=== PATIENT | male | born 1935 | race Caucasian/White ===

== ENCOUNTER → 2019-08-01 10:39 | Outpatient (CLI) | payer MEDICARE, OTHER, SELFPAY ==
--- NOTE | 2019-08-01 10:43 | US_ITS ---
PROCEDURE: US SOFT TISSUE HEAD AND NECK CLINICAL INDICATION: LT PAROTID NEOPLASM COMPARISON: SINUS CT SINUS (MAX-FACIAL W/O CONT) from 12/15/2014 FINDINGS: In the left mandibular area in the preauricular region there is a hypoechoic 1 cm nodule. The margins are somewhat irregular. There is some enhanced through transmission of sound. This does not represent a simple cyst and corresponds to the palpable abnormality. There is a 2nd nodule just anterior to this which is oval and more isoechoic and well-circumscribed measuring 1 x 0.5 x 0.9 cm IMPRESSION: There are 2 nodules present in the region of the palpable abnormality in the preauricular region on the left. One of these nodules is hypoechoic and has an irregular appearance suspicious for neoplasm. The 2nd nodule is more anterior may represent an enlarged lymph node. Recommend CT of the face/neck with contrast for further evaluation. Dictated by: Andrew Hoffman MD 08/01/2019 11:26 Electronically signed by Andrew Hoffman MD in [facility] 08/01/2019 11:26
== END ==
PROVIDERS: PCP Family Medicine; Visit Provider Family Medicine
DX: D49.2 Neoplasm of unspecified behavior of bone, soft tissue, and skin (principal)
CPT/HCPCS: 76536

== ENCOUNTER → 2019-08-10 08:28 | Outpatient (CLI) | payer MEDICARE, OTHER, SELFPAY ==
[2019-08-10 09:15] LABS: Blood Urea Nitrogen 18 mg/dL (7-18); Creatinine,Serum 0.85 mg/dL (0.70-1.30); Estimated Glomerular Filt Rate 86 ml/min (>60); GFR (African American) 104 ML/MIN (>60)
--- NOTE | 2019-08-10 09:29 | CT_ITS ---
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 All CT scans at the facility use one or more dose reduction, viz: automated exposure control, ma/kV adjustment per patient size (including targeted exams where dose is matched to indication, i.e. head), or iterative reconstruction technique. FINDINGS: No midline shift, mass effect, intracranial hemorrhage, hydrocephalus, or extra-axial fluid collection is evident. No enhancing lesions are evident. There is generalized atrophy with hypoattenuation of the periventricular white matter consistent with microangiopathic changes. The calvarium has an unremarkable appearance. There are bilateral mastoid effusions with bilateral mastoid opacification . there is moderate mucosal thickening of the ethmoid, sphenoid, and frontal sinuses. IMPRESSION: 1. No acute intracranial findings. 2. Bilateral mastoid and paranasal sinus disease Dictated by: Andrew Hoffman MD 08/11/2019 18:16 Electronically signed by Andrew Hoffman MD in [facility] 08/11/2019 18:16
--- NOTE | 2019-08-10 09:29 | CT_ITS ---
PROCEDURE: CT SOFT TISSUE NECK W CON CLINICAL HISTORY: NEOPLASM OF SKIN OF JAWLINE Palpable nodule on the left. History of parotid cancer TECHNIQUE: Oral Contrast: None IV Contrast: 75 mL Optiray 350 Axial images obtained with sagittal and coronal reformats. All CT scans at the facility use one or more dose reduction, viz: automated exposure control, ma/kV adjustment per patient size (including targeted exams where dose is matched to indication, i.e. head), or iterative reconstruction technique. FINDINGS: There is moderate mucosal thickening of the ethmoid sinuses and maxillary sinuses and the sphenoid sinuses. The sphenoid sinus is small. A BB is placed in the left preauricular region. Small nodular densities are present in the preauricular region on the left measuring up to 8 mm and may be due to small lymph nodes. This is in the left parotid bed. There has been prior left partial parotidectomy. Artifact is present the patient's dental work. There is scattered small lymph nodes in the neck with no dominant adenopathy apparent. There is bilateral mastoid opacification IMPRESSION: Status post left partial parotidectomy. There are few small nodular densities in the posterior aspect of the parotid bed in the preauricular region. These may be due to small lymph nodes measuring up to 8 mm. The differential diagnosis would include recurrence parotid nodules such as Warthin's tumor or pleomorphic adenomas. Paranasal sinus disease Bilateral mastoid opacification Dictated by: Andrew Hoffman MD 08/12/2019 05:18 Electronically signed by Andrew Hoffman MD in [facility] 08/12/2019 05:18
== END ==
PROVIDERS: PCP Family Medicine; Visit Provider Family Medicine
DX: D49.2 Neoplasm of unspecified behavior of bone, soft tissue, and skin (principal)
CPT/HCPCS: 36415; 70470; 70491; 82565; 84520; Q9967

== ENCOUNTER → 2019-10-17 16:13 | Outpatient (CLI) | payer MEDICARE, OTHER, SELFPAY ==
--- NOTE | 2019-10-17 16:27 | ECG_ITS ---
APPROVED REPORT Exam: Resting ECG HR:64 bpm ECG Measurements Heart Rate 64 AXES HI 188 P 41 QRSd 92 QRS 25 QT 408 T 100 QTc 420 <Conclusion> Normal sinus rhythm Motion Artifact No Acute Changes Seen Electronically signed by : Josh Bates, 10/17/2019 16:35:01
== END ==
PROVIDERS: PCP Family Medicine; Visit Provider Family Medicine
DX: Z01.810 Encounter for preprocedural cardiovascular examination (principal)
CPT/HCPCS: 93005

== ENCOUNTER → 2020-09-27 09:51 | Outpatient (CLI) | payer MEDICARE, OTHER, SELFPAY ==
--- NOTE | 2020-09-27 10:06 | US_ITS ---
PROCEDURE: US ABDOMEN COMPLETE CLINICAL INDICATION: RUQ PAIN COMPARISON: No exams were available for comparison FINDINGS: PANCREAS: Unremarkable. No obvious mass or abnormal fluid collection. No ductal dilatation LIVER: No focal liver lesions demonstrated. Homogeneous echogenicity. No intrahepatic biliary ductal dilatation evident. There is appropriate direction of blood flow within a non dilated portal vein RIGHT KIDNEY: Unremarkable. Normal size and echogenicity. No hydronephrosis LEFT KIDNEY: Unremarkable. Normal size and echogenicity. No hydronephrosis GALLBLADDER: There are multiple gallstones noted. No gallbladder wall thickening or pericholecystic fluid evident. Common bile duct is 5 mm. AORTA: No evidence of aneurysmal dilatation. SPLEEN: Unremarkable. Normal size and echogenicity ASCITES: None demonstrated. IMPRESSION: Cholelithiasis Dictated by: Andrew Hoffman MD 09/27/2020 16:59 Andrew Hoffman MD in [facility] 09/27/2020 16:59
== END ==
PROVIDERS: PCP Family Medicine; Visit Provider Family Medicine
DX: R10.11 Right upper quadrant pain (principal)
CPT/HCPCS: 76700

== ENCOUNTER → 2020-10-15 15:10 | Outpatient (CLI) | payer MEDICARE, OTHER, SELFPAY ==
[2020-10-15 16:14] LABS: Basophils # 0.1 K/mm3 (0-0.2); Basophils % 1.1 % (0.1-2.0); Eosinophils # 0.2 K/mm3 (0.0-0.4); Eosinophils % 2.4 % (0.1-12.0); Hematocrit 48.8 % (42.0-52.0); Hemoglobin 15.5 g/dL (14.1-18.0); Lymphocytes # 2.2 K/mm3 (0.7-4.5); Lymphocytes % 28.1 % (10-50); Mean Corpuscular HGB Conc 31.7 g/dL (31.8-35.4); Mean Corpuscular Hemoglobin 28.8 pg (27.0-31.2); Mean Corpuscular Volume 90.7 fl (80-94); Mean Platelet Volume 7.9 fl (7.4-10.4); Monocytes # 0.5 K/mm3 (0.1-1.0); Monocytes % 6.1 % (1.7-9.3); Neutrophils # 4.8 K/mm3 (1.8-7.8); Neutrophils % 62.4 % (37.0-80.0); Platelet Count 217 K/mm3 (142-424); Red Blood Count 5.37 M/mm3 (4.60-6.20); Red Cell Distribution Width 13.2 % (11.5-17.5); White Blood Count 7.7 K/mm3 (4.8-10.8)
[2020-10-15 16:37] LABS: Activated Partial Thrombo Time 25.4 seconds (23.6-34.0); INR 1.07 (0.9-1.1); Prothrombin Time 11.8 seconds (9.4-11.8)
[2020-10-15 17:25] LABS: Alanine Aminotransferase 13 U/L (12-78); Albumin Level 4.5 g/dl (3.5-5.0); Albumin/Globulin Ratio 1.6 (1.1-1.8); Alkaline Phosphatase 85 U/L (38-126); Amylase 117 U/L (30-110); Anion Gap 12.6 mEq/L (5-15); Aspartate Amino Transferase 21 U/L (17-59); Bilirubin,Total 0.6 mg/dl (0.2-1.3); Blood Urea Nitrogen 13 mg/dl (9-20); Calcium 9.7 mg/dl (8.4-10.2); Carbon Dioxide 29 mmol/L (22.0-30.0); Chloride 100 mmol/L (98-107); Estimated Glomerular Filt Rate 92 ml/min (>60); GFR (African American) 111 ML/MIN (>60); Globulin 2.9 g/dL (1.3-3.2); Glucose 113 mg/dl (74-100); Potassium 4.6 mmoL/L (3.5-5.1); Sodium 137 mmol/L (136-145); Total Protein,Serum 7.4 g/dl (6.3-8.2)
[2020-10-15 17:48] LABS: Lipase 629 U/L (23-300)
== END ==
PROVIDERS: Visit Provider Surgery
DX: K82.9 Disease of gallbladder, unspecified (principal); Z01.818 Encounter for other preprocedural examination; Z51.81 Encounter for therapeutic drug level monitoring
CPT/HCPCS: 36415; 80053; 82150; 83690; 85025; 85610; 85730

== ENCOUNTER → 2020-10-24 06:15 | Outpatient (CLI) | payer MEDICARE, OTHER, SELFPAY ==
--- NOTE | 2020-10-24 06:17 | NM_ITS ---
APPROVED REPORT Exam: Nuclear Stress Test Indication: Abnormal EKG, HTN, DM Patient Location: Outpatient Stress Tech: Lexie Suarez NH Tech:Alison Thomas, ARRT, RT (R)(N) Ht: 5 ft 8 in Wt: 155 lbs HR: 63 bpm BP: 178/78 mmHg BSA: 1.83 m2 BMI: 23.5 History: Abnormal EKG, HTN, DM Procedure: Patient received a 0.4 mg of intravenous Lexiscan, resting heart rate 63 bpm, resting blood pressure 178/78 mmHg, with Lexiscan maximum heart rate achived was 90 bpm which is Less than 85 % of the maximum predicted heart rate and blood pressure was 140/72 mmHg. With Lexiscan, patient denied any complaint of chest pain. Electrocardiogram Resting electrocardiogram showed sinus rhythm, with Lexiscan there is less than 1.[address] segment depression noted from the baseline EKG. The EKG portion of the Lexiscan is nondiagnostic. Cardiac Stress and Resting SPECT Images: Cardiac Stress and Resting SPECT images were obtained using technetium 99m Myoview 32.3 mCi stress and 9.93 mCi at rest. Gated SPECT for analysis of segmental wall motion and calculation of the ejection fraction also done. Prone images were also obtained. Cardiac stress and resting SPECT images show uniform myocardial activity without segmental perfusion abnormality, computer derived ejection fraction is 65% with no regional wall motion abnormality, right ventricle is mildly enlarged with normal contractility. Conclusion: 1. The EKG portion of the Lexiscan Myoview is nondiagnostic. 2. No scintigraphic evidence of reversible ischemia seen, computer derived ejection fraction is 65% with no regional wall motion abnormality, right ventricle is mildly enlarged with normal contractility. 3. Normal Lexiscan Myoview study. Electronically signed by : Nicanor Mckeon, 10/25/2020 11:20:37
--- NOTE | 2020-10-24 06:17 | CA_ITS ---
APPROVED REPORT Exam: Pharmacologic Technologist: Lexie Suarez Ht: 5 ft 8 in Wt: 158 lbs BSA: 1.85 m2 HR: 63 bpm BP: 178/78 mmHg Indications: Abnormal EKG Medical History Medications: Amlodipine,,,,, Aspirin,,,,, Losartan,,,,, Hyoscyamine,,,,, Stress Test Details Test: LEXISCAN HR Resting HR: 65 bpm Max Heart Rate (APMHR): 135 bpm Max HR Achieved: 110 bpm Target HR (85% APMHR): 114 bpm % of APMHR: 81 Recovery HR: 75 bpm BP Resting BP: 178.0/78.0 mmHg Max BP: 178.0/78.0 mmHg Recovery BP: 169.0/86.0 mmHg ECG Clinical Exercise duration: 04:12 min Highest Stage Achieved: Exercise capacity: 1.0 METs Stress ECG Conclusion Resting EKG: Normal sinus rhythm, slow R wave progression, PVC Symptoms: Malaise, mild shortness of air. No chest pain. Arrhythmias/Ectopy: Occasional PVC. Rare PAC. ST-T Changes: No significant changes. Conclusion: Unremarkable Lexiscan stress. Myoview images reported separately. Electronically signed by : Ncianor Mckeon, 10/25/2020 11:18:52
--- NOTE | 2020-10-24 06:17 | CA_ITS ---
APPROVED REPORT EXAM: Comprehensive 2D, Doppler, and color-flow Echocardiogram Medical Biller Coder: Kaylah Garcia CRT Ht: 5 ft 8 in Wt: 158lbs BSA: 1.85 BP: 160/72 mmHg Indications: Abnormal ECG, Pre-Op Clearance, Hypertension/HDD 2D Dimensions LVOT 1.77 cm (M/F) 1.5-2.5 M-Mode Dimensions RVDd 3.11 cm (0.9-2.6) LA Diam 3.11 cm (1.9-4.0) LVDd 3.93 cm (3.5-5.7) Ao Diam 3.64 cm (2.0-3.7) LVDs 2.18 cm (3.5-5.7) IVSd 1.86 cm (0.6-1.1) PWd 0.79 cm (0.6-1.1) EF (Teich) 76.50% FS 44.50% EDV (Teich) 67.10 mL ESV (Teich) 15.80 mL LV Diastology E Decel Time 327.00 (160-240 msec) E/A Ratio 0.41 MED E' 4.70 (< 7 cm/sec) E'/MED E' Ratio 9.34 (>14) LAT E' 6.00 (<10 cm/sec) E/LAT E' Ratio 7.32 (>14) Aortic Valve LVOT Max 137.00 (70-110 cm/s) LVOT VTI 27.98 cm AoV Peak Frantz. 179.00 (50-130 cm/s) AO Peak GR. 12.80 mmHg AO Mean GR. 6.80 (<5 mmHg) AO VTI 36.85 (18-25 cm) NIRMAL (VTI) 1.87 (2.5-4.5 cm2) Mitral Valve MV A Velocity 107.00 (40-130 cm/s) E/A Ratio 0.41 MV Decel. Time 327.00 (160-240 ms) Pulmonary Valve PV Peak Velocity 130.00 (50-150 cm/s) Tricuspid Valve TR P. Velocity 156.00 cm/s RAP Estimate 10.00 mmHg RVSP 19.80 mmHg Left Ventricle Left atrium is mildly enlarged, left ventricle is normal size, mild concentric left ventricular hypertrophy, visually estimated ejection fraction 55% with no regional wall motion abnormality, grade 1 diastolic dysfunction seen without tissue Doppler evidence of raise left atrial pressure. Right Ventricle Right atrium and right ventricle mildly enlarged with normal contractility. Aortic Valve Aortic valve is minimally thickened and fibrosed, there is no aortic stenosis or aortic insufficiency. Mitral Valve Mitral valve is minimally thickened, there is mild mitral regurgitation. Tricuspid Valve Tricuspid valve grossly normal, there is mild tricuspid regurgitation, tricuspid regurgitation jet velocity is inadequate for calculation of the right ventricular systolic pressure. Pulmonic Valve Pulmonic valve is poorly visualized. Great Vessels Aortic root is normal size. Pericardium Trivial pericardial effusion noted. Conclusion 1. Mild biatrial enlargement, normal left ventricular size, mild concentric left ventricular hypertrophy, visually estimated ejection fraction 55% with no regional wall motion abnormality, grade 1 diastolic dysfunction seen without tissue Doppler evidence of raise left atrial pressure. 2. Mildly enlarged right ventricle with normal contractility. 3. Mild mitral and tricuspid regurgitation. 4. Trivial pericardial effusion noted. Electronically signed by : Nicanor Mckeon, 10/25/2020 11:23:00
--- NOTE | 2020-10-24 08:06 | HMH.ITSHM ---
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 []LOSARTAN HYOSCYAMINE ASA AMLODIPINE
== END ==
PROVIDERS: PCP Family Medicine; Visit Provider Urology
DX: I10 Essential (primary) hypertension (principal); Z01.810 Encounter for preprocedural cardiovascular examination; Z85.818 Personal history of malignant neoplasm of other sites of lip, oral cavity, and pharynx; Z87.891 Personal history of nicotine dependence; R94.31 Abnormal electrocardiogram [ECG] [EKG]
CPT/HCPCS: 78452; 93017; 93306; A9502; J2785

== ENCOUNTER 2020-11-14 07:01 | Day surgery (SDC) | payer MEDICARE, OTHER, SELFPAY ==
[2020-11-14] VITALS (11 sets, daily range): BP systolic 108–185; BP diastolic 51–106; PULSE 65–86; RESP 16–18; TEMP 36.4–43; O2SAT 92–95; BMI 24.5; BMI 23.6
[2020-11-14 07:42] LABS: Chloride 104 mmol/L (98-107)
[2020-11-14 07:43] LABS: Potassium 4.1 mmoL/L (3.5-5.1); Sodium 137 mmol/L (136-145)
[2020-11-14 07:46] LABS: Alanine Aminotransferase 18 U/L (12-78); Albumin Level 4.5 g/dl (3.5-5.0); Albumin/Globulin Ratio 1.3 (1.1-1.8); Alkaline Phosphatase 84 U/L (38-126); Amylase 85 U/L (30-110); Anion Gap 13.1 mEq/L (5-15); Aspartate Amino Transferase 24 U/L (17-59); Blood Urea Nitrogen 12 mg/dl (9-20); Calcium 9.5 mg/dl (8.4-10.2); Carbon Dioxide 24 mmol/L (22.0-30.0); Estimated Glomerular Filt Rate 92 ml/min (>60); GFR (African American) 111 ML/MIN (>60); Globulin 3.4 g/dL (1.3-3.2); Glucose 163 mg/dl (74-100); Lipase 300 U/L (23-300); Total Protein,Serum 7.9 g/dl (6.3-8.2)
[2020-11-14 08:42] LABS: Coronavirus 19 IgG Antibody Negative (Negative); Coronavirus 19 IgM Antibody Negative (Negative)
--- NOTE | 2020-11-14 10:52 | HMH.OPNOTE ---
Date of procedure: 11/14/20 Pre-op Diagnosis:: Symptomatic gallstones Post-op Diagnosis:: Same Procedure performed:: Laparoscopic cholecystectomy Surgeon:: Amrik Mackenzie MD OVERNIGHT CASHIER:: Thom Toure Anesthesia: GETMichael Estimated blood loss (mL): 15 Clinical Note:: Patient presents for cholecystectomy. He is an 85-year-old male who is extremely hard of hearing from [facility] [place], originally referred by Dr. Desai for his gallbladder. I had seen him as initial consultation. 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 It sounds as though several weeks ago he had awoke with some mid abdominal discomfort and pain. He ultimately had undergone a abdominal ultrasound, complete, which reveals findings of multiple gallstones with no gallbladder wall thickening with normal common bile duct. Patient does state that he drinks beer daily. When questioned further regarding his abdominal pain, he states that he has some pain in the mid abdomen and occasionally localizes under the right ribs with some radiation into the back. After my initial consultation I had him undergo blood work. CBC, CMP, coagulation profile were unremarkable. He did however have above normal amylase and lipase of 629 and 117 respectively. He underwent cardiology assessment and was deemed low risk for surgery. Patient states that he has had some episodes of mid abdominal pain and would like to potentially expedite surgery. Morning of his procedure I rechecked his blood work and pancreatic enzymes were normal. Operative findings:: He had an appreciably distended gallbladder. Operative note:: Patient was taken to the operating room. He was given preoperative intravenous antibiotics. In the operating room he was placed in a supine position. General anesthesia was induced via endotracheal tube. His abdomen was prepped and draped in the standard surgical fashion. Subumbilical skin incision was made and while performing abdominal wall lift Veress needle was inserted. CO2 pneumoperitoneum was achieved to 15 mmHg. 11 mm optical trocar was inserted at the umbilicus. Intraperitoneal contents were visualized. He was positioned in reverse Trendelenburg left side down. A couple 5 mm trochars were inserted in the right upper abdomen. 10 mm trocar was inserted in the epigastrium. Gallbladder was easily identified as it was significantly distended. Gallbladder was grasped and retracted anteriorly and superiorly over the dome of the liver. Infundibulum of the gallbladder was retracted anterolaterally. Blunt dissection was carried out at the neck of the gallbladder bluntly incising the visceral peritoneum. Dissection was carried out isolating the cystic duct and cystic artery. Cystic duct was isolated, multiply clipped, and sharply divided. Cystic artery was coagulated with MITZY ultrasonic harmonic trey and divided. Gallbladder was dissected free from the liver in a retrograde fashion using MITZY ultrasonic harmonic trey. Gallbladder was placed within an Endo Catch retrieval device and removed from the peritoneal cavity via the umbilical trocar site. Limited irrigation was performed of the gallbladder fossa and perihepatic space. There was good hemostasis. Trochars were then removed as CO2 pneumoperitoneum was evacuated. Fascia at the umbilicus was closed with a couple of 0 Vicryl sutures. Local anesthetic was infiltrated. Anterior fascia at the subxiphoid incision was closed with a 0 Vicryl suture. Skin incisions were closed with 4-0 Monocryl. Steri-Strips and dressings were applied. Condition: stable Disposition: PACU Specimens:: Gallbladder and contents Complications:: None immediately apparent
--- NOTE | 2020-11-14 10:56 | HMH.ANESCL ---
[facility] Anesthesia Checklist - Patient Identification Patient Identification: Arm Band, Verbal (Name & ) - Structural Data Admitted From: Home Planned Operative Procedure/s: Laparoscopic cholecystectomy Consent for Planned Operative Procedure(s) Verified: Yes Verified Documents: Surgical Consent, History and Physical, Cardiac Clearance - NPO Status Verified Time NPO: 18:00 - Chart Verification Results Verified: CBC, BMP - Additional verifications Anesthesia Reactions: No Hx Blood Transfusions: Yes Blood Transfusion Reaction: No - Airway Assessment C-Spine Mobility Assessed: Yes TMJ Mobility Assessed: Yes Dentition: Poor Dentition (Missing) - Neurological Assessment Level of Consciousness: Awake, Alert, Appropriate, Follows Commands Hx Seizures: No Numbness or tingling in extremities: No - Anesthesia Plan Anesthesia Risk discussed: Yes Anesthesia Plan: Verified ASA Class: II Anesthesia Type: General [facility] History I have reviewed the patient's past medical history: Yes Medical History: Reports:: Cancer (parotid), Hypertension Denies:: Diabetes Mellitus Type 1, Diabetes Mellitus Type 2, Internal Pacemaker, MRSA, Seizures *Have you ever received a pneumonia vaccine?: Yes *Have you received a flu vaccine this season?: No Other Medical History: Denies: Blood Transfusion Reaction Comment:: Parotid gland CA Anesthesia experience/problems:: None Other Surgeries: Yes: Cancer Surgery. No: Pacemaker Amputation: No - *Social History Last grade of school completed: Some college Smoking Status: Former smoker Alcohol Intake: never Alcohol Intake Frequency:: 0-2 drinks per day Substance Use Type: denies use *Occupational Status:: retired Housing: house Household Members: spouse *Travel in the last 8 weeks: None Family Hx:: Cancer
--- NOTE | 2020-11-14 11:00 | P.PN_ITS ---
[facility] Anesthesia Record Part I Intake, IV Amount: 700 Estimated blood loss (mL): 15 Urine output (mL): 0 (NM) Blood Products used (#): none Blood Pressure: 130/61 SaO2: 92 Pulse Rate: 86 Respiratory Rate: 18 Temperature: 97.6 F Patient is:: Awake, Drowsy, Nasal O2 Stable to PACU at:: 10:52
--- NOTE | 2020-11-14 18:11 | P.PN_ITS ---
[facility] Anesthesia Record Part II Discharge Time: 11:22 Destination: Surgical Day Care (OP Surgery) PACU nurse assessment reviewed?: Yes Patient Condition:: Good Anesthesia Complications:: None Swallowing reflex intact?: Yes Cyanosis?: No Blood Pressure: 130/59 Pulse Rate: 75 Temperature: 98.1 F Mental Status: Alert & Oriented Pain level:: 0 Nausea and/or vomitting:: None Intake, IV Amount: 0
== END 2020-11-14 11:52 | disposition home or self-care (01) ==
LOC: OR 07:02
PROVIDERS: PCP Family Medicine; Visit Provider Surgery
PROC: 0FT44ZZ Resection of Gallbladder, Percutaneous Endoscopic Approach (ICD-10-PCS; CPT 47562; principal; 2020-11-14 10:00)
DX: K80.20 Calculus of gallbladder without cholecystitis without obstruction (principal)
CPT/HCPCS: 47562; 36415; 80053; 82150; 83690; 86328; 88304; 96374; J2405

== ENCOUNTER → 2020-12-03 13:40 | Outpatient (CLI) | payer MEDICARE, OTHER, SELFPAY ==
[2020-12-03 14:25] LABS: Basophils # 0.1 K/mm3 (0-0.2); Eosinophils # 0.2 K/mm3 (0.0-0.4); Hematocrit 49.6 % (42.0-52.0); Hemoglobin 16.1 g/dL (14.1-18.0); Lymphocytes # 1.7 K/mm3 (0.7-4.5); Lymphocytes % 18.4 % (10-50); Mean Corpuscular HGB Conc 32.4 g/dL (31.8-35.4); Mean Corpuscular Hemoglobin 29.1 pg (27.0-31.2); Mean Corpuscular Volume 89.6 fl (80-94); Mean Platelet Volume 7.8 fl (7.4-10.4); Monocytes # 0.5 K/mm3 (0.1-1.0); Monocytes % 5.3 % (1.7-9.3); Neutrophils # 6.7 K/mm3 (1.8-7.8); Neutrophils % 73.4 % (37.0-80.0); Platelet Count 213 K/mm3 (142-424); Red Blood Count 5.53 M/mm3 (4.60-6.20); Red Cell Distribution Width 13.5 % (11.5-17.5); White Blood Count 9.2 K/mm3 (4.8-10.8)
[2020-12-03 15:28] LABS: Chloride 101 mmol/L (98-107); Potassium 4.4 mmoL/L (3.5-5.1); Sodium 137 mmol/L (136-145)
[2020-12-03 15:31] LABS: Alanine Aminotransferase 20 U/L (12-78); Albumin Level 4.4 g/dl (3.5-5.0); Albumin/Globulin Ratio 1.5 (1.1-1.8); Alkaline Phosphatase 83 U/L (38-126); Amylase 69 U/L (30-110); Anion Gap 13.4 mEq/L (5-15); Aspartate Amino Transferase 21 U/L (17-59); Bilirubin,Total 0.6 mg/dl (0.2-1.3); Blood Urea Nitrogen 17 mg/dl (9-20); Calcium 9.8 mg/dl (8.4-10.2); Carbon Dioxide 27 mmol/L (22.0-30.0); Estimated Glomerular Filt Rate 80 ml/min (>60); GFR (African American) 97 ML/MIN (>60); Glucose 120 mg/dl (74-100); Lipase 391 U/L (23-300); Total Protein,Serum 7.4 g/dl (6.3-8.2)
[2020-12-03 15:33] LABS: Ethyl Alcohol < 10 mg/dl (0-10)
--- NOTE | 2020-12-03 16:20 | CT_ITS ---
PROCEDURE: CT ABDOMEN PELVIS W CON CLINICAL INDICATION: Abdominal pain, prior cholecystectomy COMPARISON: US US ABDOMEN COMPLETE from 09/27/2020 TECHNIQUE: IV Contrast: 75ML Isovue 370 Oral Contrast None Axial images obtained with sagittal and coronal reformats. All CT scans at the facility use one or more dose reduction, viz: automated exposure control, ma/kV adjustment per patient size (including targeted exams where dose is matched to indication, i.e. head), or iterative reconstruction technique. FINDINGS: LOWER THORAX: There are coronary artery calcifications. There is a pectus deformity. Atelectatic changes are present in the lower lobes. There is thickening of the GE junction nonspecific. There are few scattered small pulmonary nodules in the lung bases measuring up to 6 mm ABDOMEN & PELVIS: The liver, spleen, adrenal glands, have an unremarkable appearance. There is a 3.6 cm mass within the head of the pancreas. Pancreatic ductal dilatation is noted. Scattered small nodes are present in the peripancreatic region including a 2 cm node to the left of the pancreatic head. No renal or ureteral calculi. There are bilateral renal cysts. No intestinal obstruction or free air. No evidence of appendicitis. There is diverticulosis of the sigmoid colon. The prostate is enlarged at 4.6 cm with coarse calcifications. Degenerative disc disease with grade 2 spondylitic spondylolisthesis is present at L5-S1. IMPRESSION: 1. 3.6 cm mass within the pancreatic head with ductal dilatation and mildly prominent peripancreatic lymph node consistent with pancreatic carcinoma. 2. Small basilar pulmonary nodules nonspecific but could be seen with pulmonary metastasis. Dedicated chest CT may provide further evaluation. 3. Colonic diverticulosis without diverticulitis. 4. Enlarged prostate with coarse calcifications Dictated by: Andrew Hoffman MD 12/04/2020 12:46 Andrew Hoffman MD in [place] 12/04/2020 12:46
== END ==
PROVIDERS: Visit Provider Surgery
DX: K80.20 Calculus of gallbladder without cholecystitis without obstruction (principal); I50.32 Chronic diastolic (congestive) heart failure
CPT/HCPCS: 36415; 74177; 80053; 82150; 82565; 83690; 84520; 85025; Q9967